=== PATIENT | female | born 1960 | race Caucasian/White ===

== ENCOUNTER 2017-11-21 09:17 | Day surgery (SDC) | payer MEDICARE, OTHER ==
[2017-11-21] MEDS ORDERED: PROPOFOL 20 ML (10:31)
[2017-11-21] MEDS ORDERED: LIDOCAINE 2% (SDV) 5 ML INJ (10:31)
[2017-11-21] MEDS ORDERED: FENTAnyl 50 MCG/ML VIAL (10:31)
[2017-11-21] MEDS ORDERED: MIDAZOLAM 1 MG/ML 2 ML INJ (10:31)
== END 2017-11-21 11:27 | disposition home or self-care (01) ==
LOC: GIL 09:17
DX: K29.30 Chronic superficial gastritis without bleeding (principal); B96.81 Helicobacter pylori [H. pylori] as the cause of diseases classified elsewhere; D12.6 Benign neoplasm of colon, unspecified; K63.5 Polyp of colon; K57.30 Diverticulosis of large intestine without perforation or abscess without bleeding; K64.8 Other hemorrhoids; R19.5 Other fecal abnormalities; E11.9 Type 2 diabetes mellitus without complications; I10 Essential (primary) hypertension; E66.9 Obesity, unspecified; Z68.39 Body mass index [BMI] 39.0-39.9, adult; M19.90 Unspecified osteoarthritis, unspecified site
CPT/HCPCS: 43239; 82962; 88305; 88312